=== PATIENT | male | born 1945 | race Caucasian/White ===

== ENCOUNTER → 2019-06-22 | Outpatient (CLI) | payer OTHER ==
--- NOTE | 2019-06-22 13:27 | CTL ---
EXAMINATION TYPE: CT Low Dose Lung DATE OF EXAM ORDERED: 06/22/2019 HISTORY: Long-term tobacco use. Lung cancer screening CT DLP: [address] CTDI: 2.33 mGy Automated exposure control for dose reduction was used. SCREENING VISIT: Initial study COMPARISON: None TECHNIQUE: Low dose computed tomography scan was performed through the chest at 1 mm thick sections a nd reconstructed images in the coronal plane at [address] DIAGNOSTIC QUALITY: Satisfactory FINDINGS: LUNG NODULES: Present, detailed below: There is 6 x 5 mm left mid lung nodule axial image 215. There is 9 x 3 mm nodule right lower lung along fissure axial image 200 presumed benign due to locat ion. There is 8 x 7 mm superior right lower lobe nodule axial image 221. There is 9 x 7 mm left lower lobe nodule medially on axial image 251. Few additional smaller nodules measuring under 5 mm. LUNGS: COPD: Severity: [id number] Fibrosis: Severity: Mild linear scarring in both bases Lymph nodes: No definitive greater than 1 cm Other findings: None BILATERAL PLEURAL SPACE: Effusion: None Calcification: None Thickening: None Pneumothorax: None HEART: Heart Size: Normal Coronary calcification: [id number] Pericardial effusion: None OTHER FINDINGS: Upper abdomen: None. Bony thorax: Moderate multilevel anterior and lateral spurring. Supraclavicular region: Normal. Other: Small degree of bilateral subareolar gynecomastia. IMPRESSION: Scattered small nodules up to 9 mm in size bilaterally. FOLLOW UP CT CHEST RECOMMENDATION: Low-dose lung screening CT in [address] LUNG RAD: Lung-Rad 4A Suspicious
== END | disposition home or self-care (01) ==
LOC: RADCTMAIN 12:18
PROVIDERS: ATTEND Nurse Practitioner Acute Care
DX: Z12.2 Encounter for screening for malignant neoplasm of respiratory organs (principal); R91.8 Other nonspecific abnormal finding of lung field; F17.210 Nicotine dependence, cigarettes, uncomplicated

== ENCOUNTER → 2020-04-05 | Outpatient (CLI) | payer OTHER ==
--- NOTE | 2020-04-06 21:26 | CT ---
EXAMINATION TYPE: CT chest wo con DATE OF EXAM: 04/05/2020 COMPARISON: 06/22/2019. HISTORY: Lung nodule CT DLP: 718 mGycm. Automated Exposure Control for Dose Reduction was Utilized. TECHNIQUE: CT scan of the thorax is performed without IV contrast. FINDINGS: LUNGS: There is redemonstration of bilateral scattered multiple pulmonary nodules measuring up to 9 m m, grossly stable. There is at least one nodule in in the bilateral lower lobes, right middle lobe an d lingula. There is development of small opacity in the left lower lobe. There is moderate centrilobu lar emphysema. No pleural effusion or pneumothorax. MEDIASTINUM: Lack of IV contrast is noted to limit evaluation for mediastinal and especially hilar ad enopathy. There are scattered small to borderline-enlarged mediastinal lymph nodes, likely reactive. No cardiomegaly or pericardial effusion is seen. There is moderate thoracic aorta and coronary athe rosclerotic disease. OTHER: No additional significant abnormality is seen. IMPRESSION: New small left lower lobe opacity. Correlate clinically for infiltrate. Otherwise unchanged multiple bilateral pulmonary nodules. Recommend follow-up in one year.
== END | disposition home or self-care (01) ==
LOC: RADCTMAIN 14:39
DX: R91.8 Other nonspecific abnormal finding of lung field (principal)
CPT/HCPCS: 71250

== ENCOUNTER → 2022-03-13 | Outpatient (CLI) | payer OTHER ==
--- NOTE | 2022-03-13 13:22 | CT ---
EXAMINATION TYPE: CT chest wo con DATE OF EXAM: 03/13/2022 COMPARISON: 04/05/2020 HISTORY: Solitary Pulmonary Nodule CT DLP: [address] of the chest was performed with lung and mediastinal window settings submitted. The la ck of contrast limits evaluation of the vascular, mediastinal and parenchymal structures including th e upper abdomen. LUNGS: Left lower lobe pulmonary nodule is smaller in size and currently measures 6.4 mm versus 8.8 m m previously. 4 mm pulmonary nodule superior segment right middle lobe medially. Scattered parenchyma l scarring. Improved aeration left lower lobe. Mild upper lobe emphysematous change. No focal consoli dation. MEDIASTINUM/SABINE: Thoracic aorta is of normal caliber with limited evaluation given lack of contrast . The heart is not enlarged. No evidence for mediastinal mass. No lymph nodes greater than 1cm. UPPER ABDOMEN: No significant abnormality is seen. OTHER: No significant other abnormality. IMPRESSION: 1. Left lower lobe pulmonary nodule has decreased in size. Continued follow-up in one year advised.
== END | disposition home or self-care (01) ==
LOC: RADCTMAIN 12:37
DX: R91.1 Solitary pulmonary nodule (principal)
CPT/HCPCS: 71250

== ENCOUNTER → 2023-05-17 | Outpatient (CLI) | payer OTHER ==
--- NOTE | 2023-05-17 11:14 | CTL ---
EXAMINATION TYPE: CT Low Dose Lung DATE OF EXAM ORDERED: 05/17/2023 HISTORY: . Lung cancer screening CT DLP: 120.20 mGycm Automated exposure control for dose reduction was used. SCREENING VISIT: Subsequent COMPARISON: 06/22/2019 TECHNIQUE: Low dose computed tomography scan was performed through the chest at 1 mm thick sections a nd reconstructed images in the coronal plane at [address] DIAGNOSTIC QUALITY: Satisfactory FINDINGS: LUNG NODULES: Present, detailed below: 1. There is a 1.0 cm nodule which appears contiguous with the adjacent left apical thickening. Karimee r this is an interval change. Consider additional workup with PET/CT. 2. Right apical thickening is present. 3. There is a new oval lobular density within the right upper lung field. Series 4 image 80. 4. There is a stable 0.6 cm nodule posterior medial right lower lung field. Series 4 image 2-3. LUNGS: COPD: Severity: Mild Fibrosis: Severity: None Lymph nodes: No enlarged adenopathy Other findings: None RIGHT PLEURAL SPACE: Effusion: None Calcification: None Thickening: None Pneumothorax: None LEFT PLEURAL SPACE: Effusion: None Calcification: None Thickening: None Pneumothorax: None HEART: Heart Size: Normal Coronary calcification: Mild Pericardial effusion: None OTHER FINDINGS: Upper abdomen: Normal Bony thorax: Normal Supraclavicular region: Normal Other: IMPRESSION: 1. New bilateral lung nodules. PET/CT recommended for additional workup. FOLLOW UP CT CHEST RECOMMENDATION: PET/CT CT LUNG RAD: Lung-Rad 4B Suspicious
== END | disposition home or self-care (01) ==
LOC: RADCTMAIN 09:48
PROVIDERS: ATTEND Family Medicine
DX: Z12.2 Encounter for screening for malignant neoplasm of respiratory organs (principal); R91.8 Other nonspecific abnormal finding of lung field; F17.210 Nicotine dependence, cigarettes, uncomplicated
CPT/HCPCS: 71271

== ENCOUNTER → 2023-07-08 | Outpatient (CLI) | payer OTHER | END | disposition home or self-care (01) | LOC: RADPETMAIN 08:48 | DX: Z53.9 Procedure and treatment not carried out, unspecified reason (principal) ==

== ENCOUNTER → 2023-07-16 | Outpatient (CLI) | payer OTHER ==
--- NOTE | 2023-07-19 13:12 | PE ---
EXAMINATION TYPE: PET CT fusion skull to thigh DATE OF EXAM: 07/16/2023 CLINICAL INDICATION:Male, 78 years old with history of R93.89 ABN FINDINGS ON DX IMAGING OF OTH BODY; TECHNIQUE: Following the intravenous administration of 8.6 mCi of F-18 FDG, whole body images are p erformed from the skull base to the midthigh. Images are reviewed on the computer in the coronal, ax ial, and sagittal planes. Reconstructed rotating images are created on independent workstation and r eviewed on the computer. A non-contrast CT is performed in conjunction with the PET scan. Glucose l evel 107 mg/dL CT DLP: 808 mGycm, Automated exposure control for dose reduction was used. COMPARISON: CT 05/17/2023, PET/CT None, FINDINGS: Mediastinal SUV mean is 2.2. Hepatic parenchyma SUV mean is 2.6. SKULL BASE AND NECK: No suspicious radiotracer activity. CHEST, MEDIASTINUM, AND HILAR REGION: * Right upper lung 12 x 6 mm pulmonary nodule Max SUV 4.7. * Uptake within the right pulmonary hilum max SUV 4.1 and in the left Max SUV 4.6. * Suspected physiologic uptake within the bilateral axillary lymph nodes max SUV on the right 3.7 an d on the left 5.6. Other smaller pulmonary nodules including: * Left lower lobe superior segment nodule measuring 8 mm Max SUV 1.8. * Left upper lobe 4 mm pulmonary nodule Max SUV 0.8. * Right lower lobe 6 mm nodule Max SUV 1.2. ABDOMEN AND PELVIS: No suspicious radiotracer activity. MUSCULOSKELETAL STRUCTURES: No suspicious radiotracer activity. OTHER CT: Semi-[id number]-pblvxcgz emphysema changes throughout the lungs. Prostate gland is enlarged for siz e. Severe atherosclerosis of the arterial vasculature. IMPRESSION: * Right upper lung pulmonary nodule with increased radiotracer activity concerning for malignancy. M ild uptake within the bilateral pulmonary timothy and subcarinal region unclear if this time if this is infectious/inflammatory uptake versus metastatic disease. * Additional scattered smaller pulmonary nodules which are below the sensitivity of PET/CT.
== END | disposition home or self-care (01) ==
LOC: RADPETMAIN 13:00
DX: R91.8 Other nonspecific abnormal finding of lung field (principal); R93.89 Abnormal findings on diagnostic imaging of other specified body structures
CPT/HCPCS: 78815; A9552

== ENCOUNTER → 2023-12-13 | Outpatient (CLI) | payer OTHER ==
--- NOTE | 2023-12-31 16:21 | CT ---
Patient Bunny Cain ID [id number] 1945 Age 78 years Gender F Order # EXAMINATION TYPE: CT chest w con DATE OF EXAM: 12/13/2023 COMPARISON: No comparison available on downtime PACS. HISTORY: History of a lung nodule CT DLP: 494.60 mGycm, Automated exposure control for dose reduction was used. CONTRAST: Performed injected with 100 mL of Isovue 300. TECHNIQUE: Axial images were obtained at 5 mm thick sections. Reconstructed images are reviewed on [employer] computer in the coronal plane. FINDINGS: Portion of the thyroid visualized is normal. Small spiculated density is at the anterior left apex measuring 0.8 cm. Series 4 image 4. There is a pleural-based density measuring 0.6 cm posterior lateral right apex. Series 4 image 10. There is a 1.7 x 0.9 cm irregular density right upper lung field. Series 4 image 13. Findings there i s a 0.6 cm nodule posterior medial right midlung. Series 4 image 43. There is a 0.6 cm nodule posteri or medial left mid to lower lung field, series 4 image 48. There is a 0.6 cm nodule of the left diaph ragm, series 4 image 58. Multiple small lymph nodes within the mediastinum. There is a prominent right hilar lymph node measu ring 1.2 cm. Some prominence of the left hilum may be present measuring 1.4 cm. A 1.3 cm subcarinal l ymph node may be present. The ascending aorta diameter at the level of the main pulmonary artery is 3.4 cm. The main pulmonary artery diameter at the bifurcation is 2.[address] sections are obtained through the upper abdomen. Abdomen is essentially unremarkable. IMPRESSION: 1. Right upper lobe lung mass with multiple bilateral lung nodules. 2. A few enlarged mediastinal lymph nodes present at the bilateral hilum and subcarinal region. 3. Recommend follow-up with PET/CT. 4. Without comparison images, evaluation for change in number or growth cannot be performed.
== END | disposition home or self-care (01) ==
LOC: RADCTMAIN 11:15
PROVIDERS: ATTEND Internal Medicine
DX: R91.8 Other nonspecific abnormal finding of lung field (principal); R59.0 Localized enlarged lymph nodes
CPT/HCPCS: 71260; 36415; Q9967

== ENCOUNTER → 2024-05-08 | Outpatient (CLI) | payer OTHER ==
[2024-05-08 15:25] LABS: African American GFR (CKD) 57 (>60 ml/min/1.73 sqM); Blood Urea Nitrogen 24 mg/dL (9-20); Non-African American GFR(CKD) 49 (>60 ml/min/1.73 sqM)
--- NOTE | 2024-05-08 16:03 | CT ---
EXAMINATION TYPE: CT chest w con CT DLP: 511.8 mGycm, Automated exposure control for dose reduction was used. DATE OF EXAM: 05/08/2024 3:50 PM COMPARISON: CT chest 12/31/2023, 03/13/2022, CT low-dose lung 05/17/2023, PET/CT 07/16/2023 CLINICAL INDICATION:Male, 78 years old with history of R91.8 OTHER NONSPECIFIC ABNORMAL FINDING OF SHAKEEL NG F; PHH, nodules TECHNIQUE: Multiple axial images were obtained through the chest following the administration of 100 cc of Isovue 300. . Coronal and sagittal reformats reviewed. FINDINGS: LUNGS/ PLEURA: No pleural effusion, pneumothorax, focal consolidation. Moderate centrilobular emphyse matous changes. Stable scattered pulmonary nodules from prior exam. Examples include a spiculated ri ght upper lobe 1.8 cm pulmonary nodule (series 4, image 17), left apical 7 mm pulmonary nodule (serie s 4, image 8), right lower lobe 5 mm pulmonary nodule (series 4, image 33), right lower lobe medial 7 mm pulmonary nodule (series 4, image 45), lingular 5 mm pulmonary nodule (series 4, image 45), media l left lower lobe 8 mm pulmonary nodule (series 4, image 50), and left lower lobe 5 mm pulmonary nodu le (series 4, image 61). Some of these nodules are stable dating back to 2020 however there are a few that are new from 2020. No suspicious cyst within the right upper lung measuring up to 1.8 cm. This demonstrated FDG activity in prior PET/CT and was not present on [address]. AIRWAY: Patent and unremarkable.. HEART: Size within normal limits.No pericardial effusion. Small coronary artery calcifications. MEDIASTINUM: Stable enlarged subcarinal lymph node measuring up to 1.7 cm (series 3, image 34). Stabl e enlarged right hilar lymph node measuring up to 1.6 cm (series 3, image 34), and stable enlarged le ft hilar lymph node measuring up to 1.2 cm (series 3, image 36). VASCULATURE: Atherosclerotic calcifications are present throughout the aorta and its branches. No th oracic aortic aneurysm. MUSCULOSKELETAL: No acute osseous abnormalities. No aggressive osseous lesion. DISH of the thoracic s pine. SOFT TISSUES/LYMPH NODES: Unremarkable. LOWER NECK: No significant findings. UPPER ABDOMEN: No significant findings. IMPRESSION: 1. Stable scattered pulmonary nodules with largest within the right upper lobe measuring up to 1.8 c m. This demonstrated mild FDG activity on prior PET/CT. Continued surveillance is recommended. 2. Stable nonspecific enlarged mediastinal bilateral hilar lymph nodes. 3. COPD changes. [facility], , 05/08/2024 4:01 PM
== END | disposition home or self-care (01) ==
LOC: RADCTMAIN 14:47
PROVIDERS: ATTEND Internal Medicine
DX: R91.8 Other nonspecific abnormal finding of lung field (principal); J44.9 Chronic obstructive pulmonary disease, unspecified; I70.0 Atherosclerosis of aorta
CPT/HCPCS: 82565; 84520; 71260; 36415; Q9967

== ENCOUNTER → 2024-09-11 | Outpatient (CLI) | payer OTHER ==
[2024-09-11 11:55] LABS: African American GFR (CKD) 24 (>60 ml/min/1.73 sqM); Blood Urea Nitrogen 40 mg/dL (9-20); Non-African American GFR(CKD) 21 (>60 ml/min/1.73 sqM)
--- NOTE | 2024-09-11 14:14 | CT ---
EXAMINATION TYPE: CT chest wo con DATE OF EXAM: 09/11/2024 COMPARISON: Chest CT May 08, 2024 and older CTs. CLINICAL INDICATION: Male, 79 years old with history of R91.1 SOLITARY PULMONARY NODULE, PULMONARY NO DULE TECHNIQUE: CT scan of the thorax is performed without IV contrast. CT DLP: 506 mGycm. Automated Exposure Control for Dose Reduction was Utilized. FINDINGS: LUNGS: Moderate underlying emphysematous changes are redemonstrated. Stable 1.7 cm spiculated right u pper lobe pulmonary nodule axial image 19. Scattered smaller nodules are redemonstrated. For referenc e stable 7 mm posterior right mid lung pulmonary nodule axial image 48. No enlarging nodules clearly seen. Mild bibasilar scarring is redemonstrated. No pleural effusion or pneumothorax seen bilaterally . HEART: Size within normal limits. Moderate coronary artery calcifications present. MEDIASTINUM: Lack of IV contrast is noted to limit evaluation for mediastinal and especially hilar ad enopathy. There are no definitive greater than 1 cm mediastinal lymph nodes. No pericardial effusio n is seen. OTHER: Prominent bilateral axillary lymph nodes axial image 29 are not significantly changed from mos t recent prior CT . IMPRESSION: Stable bilateral pulmonary nodules. No suspicious new or enlarging nodules. [facility], , 09/11/2024 2:12 PM
== END | disposition home or self-care (01) ==
LOC: RADCTMAIN 11:09
PROVIDERS: ATTEND Internal Medicine
DX: R91.1 Solitary pulmonary nodule (principal); R91.8 Other nonspecific abnormal finding of lung field
CPT/HCPCS: 36415; 71250; 82565; 84520

== ENCOUNTER 2024-10-23 11:23 | Emergency (ER) | payer OTHER ==
[2024-10-23 11:41] VITALS: TEMP 98.6
--- NOTE | 2024-10-23 13:47 | ED ---
General Adult HPI - General Chief complaint: Recheck/Abnormal Lab/Rx Stated complaint: Abn Labs Time Seen by Provider: 10/23/24 13:30 Source: patient Mode of arrival: ambulatory Limitations: no limitations - History of Present Illness Initial comments: Dictation was produced using [employer] dictation software. please excuse any grammatical, word or spelling errors. Chief Complaint: 79-year-old male with abnormal outpatient labs History of Present Illness: Patient is a 79-year-old male was seen in the primary care physician's office 4 days ago at the [facility]. He had blood work drawn at that time. Had a follow-up appointment today and was told that he had elevated renal markers and he should come to the emergency department. Patient denies any complaints. The ROS documented in this emergency department record has been reviewed and confirmed by me. Those systems with pertinent positive or negative responses have been documented in the HPI. All other systems are other negative and/or noncontributory. - Related Data Allergies Allergy/AdvReac Type Severity Reaction Status Date / Time No Known Allergies Allergy Verified 10/23/24 11:41 Review of Systems ROS Statement: Those systems with pertinent positive or pertinent negative responses have been documented in the HPI. ROS Other: All systems not noted in ROS Statement are negative. Past Medical History Past Medical History: Diabetes Mellitus, Hypertension History of Any Multi-Drug Resistant Organisms: None Reported Past Surgical History: No Surgical Hx Reported Past Psychological History: No Psychological Hx Reported Smoking Status: Current every day smoker Past Alcohol Use History: Occasional Past Drug Use History: None Reported General Exam - General Exam Comments Initial Comments: PHYSICAL EXAM: General Impression: Alert and oriented x3, not in acute distress HEENT: Normocephalic atraumatic, extra-ocular movements intact, pupils equal and reactive to light bilaterally, mucous membranes moist. Cardiovascular: Heart regular rate and rhythm Chest: Able to complete full sentences, no retractions, no tachypnea Abdomen: abdomen soft, non-tender, non-distended, no organomegaly Musculoskeletal: Pulses present and equal in all extremities, no peripheral edema Motor: no focal deficits noted Neurological: CN II-XII grossly intact, no focal motor or sensory deficits noted Skin: Intact with no visualized rashes Psych: Normal affect and mood Limitations: no limitations Course Vital Signs 10/23/24 11:38 Temperature 98.6 F Pulse Rate 79 Respiratory 16 Rate Blood Pressure 176/72 O2 Sat by Pulse 99 Oximetry Medical Decision Making - Medical Decision Making Was pt. sent in by a medical professional or institution (, PA, TRUCK BODY BUILDER APPRENTICE, urgent care, hospital, or halfway...) When possible be specific @ -No Did you speak to anyone other than the patient for history (EMS, parent, family, police, friend...)? What history was obtained from this source @ -No Did you review nursing and triage notes (agree or disagree)? Why? @ -I reviewed and agree with nursing and triage notes Were old charts reviewed (outside hosp., previous admission, EMS record, old EKG, old radiological studies, urgent care reports/EKG's, halfway records)? Report findings @ -Lab documentation brought by patient reviewed showing elevated kidney marke rs Differential Diagnosis (chest pain, altered mental status, abdominal pain women, abdominal pain men, vaginal bleeding, musculoskeletal, weakness, fever, dyspnea, syncope, headache, dizziness, GI bleed, back pain, seizure, CVA, palpatations, mental health)? @ -RAHUL, CKD, ESRD EKG interpreted by me (3pts min.). @ -None done X-rays interpreted by me (1pt min.). @ -None done CT interpreted by me (1pt min.). @ -None done U/S interpreted by me (1pt. min.). @ -None done What testing was considered but not performed or refused? (CT, X-rays, U/S, labs)? Why? @ -None What meds were considered but not given or refused? Why? @ -None Was smoking cessation discussed for >3mins.? @ -No Were there social determinants of health that impacted care today? How? (Homelessness, low income, unemployed, alcoholism, drug addiction, transportation, low edu. Level, literacy, decrease access to med. care, [facility], rehab)? @ -No Was there de-escalation of care discussed even if they declined (Discuss DNR or withdrawal of care, Hospice)? DNR status @ -No What co-morbidities impacted this encounter? (DM, HTN, Smoking, COPD, CAD, Cancer, CVA, ARF, Chemo, Hep., AIDS, mental health diagnosis, sleep apnea, morbid obesity)? @ -None Was patient admitted / discharged? Hospital course, mention meds given and route, prescriptions, significant lab abnormalities, going to OR and other pertinent info. @ -79-year-old male presents to the emergency department for abnormal blood work states that still to come to the ER by the [facility] for elevated kidney markers. Patient feels fine states that he had blood work drawn as a routine doctor's appointment. Patient has no complaints. Vital signs are stable. Laboratory evaluation obtained. Creatinine of 2.56 with a BUN of 40. Previous blood work was reviewed showing that on September 11 patient had creatinine level of 2.72. Patient to his knowledge has no history of kidney issues. He was never evaluated by white washer. Urinalysis is negative. At this point given that patient is well-appearing likely has chronic kidney disease he is given outpatie nt referral to nephrology. Nephrology appointment was made for the patient case management manager. Did you discuss the management of the patient with other professionals (professionals i.e. , PA, TRUCK BODY BUILDER APPRENTICE, lab, RT, psych nurse, social services coordinator, business lawyer, teacher, security officer, case management manager)? Give summary @ -No Was critical care preformed (if so, how long)? @ -No Undiagnosed new problem with uncertain prognosis? @ -No Drug Therapy requiring intensive monitoring for toxicity (Heparin, Nitro, Insulin, Cardizem)? @ -No Were any procedures done? @ -No Diagnosis/symptom? Acute, or Chronic, or Acute on Chronic? Uncomplicated (without systemic symptoms) or Complicated (systemic symptoms)? @ -Elevated renal BUN and creatinine Side effects of treatment? @ -No Exacerbation, Progression, or Severe Exacerbation? @ -No Poses a threat to life or bodily function? How? (Chest pain, USA, CT, pneumonia, PE, COPD, DKA, ARF, appy, cholecystitis, CVA, Diverticulitis, Homicidal, Suicidal, threat to staff... and all critical care pts) @ -yes - Lab Data Result diagrams: 10/23/24 14:03 10/23/24 14:29 Lab Results 10/23/24 10/23/24 10/23/24 Range/Units 14:03 14:03 14:29 WBC 8.78 (4.50-10.00) 10*3/uL RBC 3.47 L (4.40-5.60) 10*6/uL Hgb 10.2 L (13.0-17.0) g/dL Hct 31.6 L (39.6-50.0) % MCV 91.1 (80.0-97.0) fL MCH 29.4 (27.0-32.0) pg MCHC 32.3 (32.0-37.0) g/dL Plt Count 468 H (140-440) 10*3/uL MPV 9.8 (9.5-12.2) fL Immature Gran % (Auto) 0.2 % Neutrophils % 69.1 % Lymphocytes % 16.4 % Monocytes % 9.6 % Eosinophils % 3.9 % Basophils % 0.8 % Immature Gran # 0.02 (0.00-0.04) 10*3/uL Neutrophils # 6.07 (1.80-7.70) 10*3/uL Lymphocytes # 1.44 (0.90-5.00) 10*3/uL Monocytes # 0.84 (0.20-1.00) 10*3/uL Eosinophils # 0.34 (0.04-0.35) 10*3/uL Basophils # 0.07 (0.00-0.10) 10*3/uL Sodium 138 (137-145) mmol/L Potassium 4.9 (3.5-5.1) mmol/L Chloride 103 (98-107) mmol/L Carbon Dioxide 21 L (22-30) mmol/L Anion Gap 14 mmol/L BUN 40 H (9-20) mg/dL Creatinine 2.56 H (0.66-1.25) mg/dL Est GFR (CKD-EPI)AfAm 26 (>60 ml/min/1.73 sqM) Est GFR (CKD-EPI)NonAf 23 (>60 ml/min/1.73 sqM) Glucose 99 (74-99) mg/dL Calcium 10.0 (8.4-10.2) mg/dL Total Bilirubin 0.6 (0.2-1.3) mg/dL AST 19 (17-59) U/L ALT 11 (4-49) U/L Alkaline Phosphatase 84 (38-126) U/L Total Protein 7.4 (6.3-8.2) g/dL Albumin 4.2 (3.5-5.0) g/dL Urine Color Colorless Urine Appearance Clear (Clear) Urine pH 5.5 (5.0-8.0) Ur Specific [place] 1.011 (1.001-1.035) Urine Protein Negative (Negative) Urine Glucose (UA) Negative (Negative) Urine Ketones Negative (Negative) Urine Blood Negative (Negative) Urine Nitrite Negative (Negative) Urine Bilirubin Negative (Negative) Urine Urobilinogen <2.0 (<2.0) mg/dL Ur Leukocyte Esterase Negative (Negative) Disposition Clinical Impression: Kidney disease Disposition: HOME SELF-CARE Condition: Fair Instructions (If sedation given, give patient instructions): Impaired Kidney Function (ED) Additional Instructions: please follow up with nephrology clinic as arranged by Drop Wire Operator Is patient prescribed a controlled substance at d/c from ED?: No Referrals: Cristino Guillen DO [STAFF PHYSICIAN] - 1-2 days Time of Disposition: 15:27
[2024-10-23 14:16] LABS: Appearance,Urine Clear (Clear); Bilirubin,Urine Negative (Negative); Blood,Urine Negative (Negative); Color,Urine Colorless; Glucose,Urine (UA) Negative (Negative); Ketones,Urine Negative (Negative); Leukocyte Esterase,Urine Negative (Negative); Nitrite,Urine Negative (Negative); PH, Urine 5.5 (5.0-8.0); Protein,Urine Negative (Negative); Specific Gravity,Urine 1.011 (1.001-1.035); Urobilinogen,Urine <2.0 mg/dL (<2.0)
[2024-10-23 14:27] LABS: Basophils # (A) 0.07 10*3/uL (0.00-0.10); Basophils % (A) 0.8 %; Eosinophils # (A) 0.34 10*3/uL (0.04-0.35); Eosinophils % (A) 3.9 %; HCT 31.6 % (39.6-50.0); HGB 10.2 g/dL (13.0-17.0); Lymphocytes # (A) 1.44 10*3/uL (0.90-5.00); Lymphocytes % (A) 16.4 %; MCH 29.4 pg (27.0-32.0); MCHC 32.3 g/dL (32.0-37.0); MCV 91.1 fL (80.0-97.0); Mean Platelet Volume 9.8 fL (9.5-12.2); Monocytes # (A) 0.84 10*3/uL (0.20-1.00); Monocytes % (A) 9.6 %; Neutrophils # (A) 6.07 10*3/uL (1.80-7.70); Neutrophils % (A) 69.1 %; RBC 3.47 10*6/uL (4.40-5.60); RDW 13.4 % (11.5-14.5); WBC 8.78 10*3/uL (4.50-10.00)
[2024-10-23] MEDS: SODIUM CHLORIDE 0.9% 1,000 ML IV STA (14:30)
[2024-10-23 15:14] LABS: ALT 11 U/L (4-49); AST 19 U/L (17-59); African American GFR (CKD) 26 (>60 ml/min/1.73 sqM); Albumin 4.2 g/dL (3.5-5.0); Alkaline Phosphatase 84 U/L (38-126); Anion Gap 14 mmol/L; Blood Urea Nitrogen 40 mg/dL (9-20); Carbon Dioxide 21 mmol/L (22-30); Chloride 103 mmol/L (98-107); Glucose 99 mg/dL (74-99); Non-African American GFR(CKD) 23 (>60 ml/min/1.73 sqM); Potassium 4.9 mmol/L (3.5-5.1); Sodium 138 mmol/L (137-145); Total Bilirubin 0.6 mg/dL (0.2-1.3); Total Protein 7.4 g/dL (6.3-8.2)
[2024-10-23 15:16] LABS: Platelet Count 468 10*3/uL (140-440)
[2024-10-23 16:01] VITALS: BP 158/74; PULSE 72; RESP 18
== END 2024-10-23 16:02 | disposition home or self-care (01) ==
LOC: EC 11:23
DX: N28.9 Disorder of kidney and ureter, unspecified (principal); F17.200 Nicotine dependence, unspecified, uncomplicated; R94.4 Abnormal results of kidney function studies
CPT/HCPCS: 36415; 80053; 81003; 85025; 96360; 99283